=== PATIENT | female | born 1950 | race Caucasian/White ===

== ENCOUNTER 2025-02-10 08:42 | Outpatient (AMB) | payer MEDICARE, MEDICAID, SELFPAY ==
--- NOTE | 2025-02-10 08:44 | A.OFFPC_ITS ---
Vital Signs 02/10/25 08:53 Height 5 ft 2 in Weight 205 lb 4 oz BMI 37.5 BP 140/90 H Blood Pressure Location Lt brachial Position Sitting Respiration 16 Pulse 74 Pulse Source Pulse Oximeter Temp 98.0 F Temp Source Oral Pulse Oximetry (%) 98 Oxygen Delivery Method Room Air Intake Visit Reasons: CPE Intake Note: patient here for new patient. 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 Is last menstrual period known: No Post menopausal: No Patient : No Allergies No Known Allergies Allergy (Verified 02/10/25 08:56) Medication List - Last Reconciled 02/10/25 by Kathy Cerna CNP allopurinol 200 mg PO DAILY bupropion HCl XL 150 mg PO DAILY losartan 50 mg PO DAILY Tobacco use date assessed: 02/10/25 Fall risk assessment: No Falls in past year Last assessed Fall Risk: 02/10/25 Dental Screening Dental Screen Date: 02/10/25 Did you have a dental visit in the last 12 months?: No Did you have a dental problem in the last 6 months where you did not have access to dental care?: No Was dental information given to patient?: Patient has dentist HPI HPI Comments History of Present Illness Details 74-year-old female presents to critical access hospital care. She admits to taking her medications as prescribed without adverse reactions. She uses a walker and cane at baseline. Prior PCP? - Dr. Melo, [facility] Last office visit/CPE/labs - 1 year ago Acute issue(s) - HTN: Takes losartan 50 mg daily - Depression: takes buropion 150 mg malissa y. Notes controlled depressive symptoms. She attributes her depression to being lonely and physically not active. She has children who live nearby but busy taking care of the families. 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 She does not wear hearing aid and has never been followed by audiology - Myopia and hyperopia: She wears prescr iption glasses - Arthritis of right hip and knee and ch ronic low back pain with prolonged standing: She takes ibuprofen as needed Past Medical History - Hypertension, arthritis right hip and knee, chronic low back pain, urinary incontinence, gout, depression Surgical History - Cholecystectomy, left knee replacement Family History - Dad: HTN, HLD, cardiovascular disease, diabetes Social History - Nonsmoker. Does not vape. Does not dri nk alcohol. Denies recreational drug use - Has been making healthy dietary choice s. Not active and does not exercise. Generally sleep well Health maintenance - Last eye exam was about 2 years ago. Referred to Ophthalmology for routine eye exam - Last dental visit was over a years ago ; encouraged to schedule an appointment with his dentist for routine dental care - Last tetanus vaccine was more than 10 years ago; received Tdap vaccine today - Has not been vaccinated for the flu ; declines vaccination - She noes that she is vaccinated for pn eumonia. Record not currently available - She is unsure if she ever had the corea gles vaccines. She will research her vaccine record - Last pap smear test 10 years ago: robb peralta She no longer performs pap smear test - Last mammogram was about 5-10 years ag o. Mammogram ordered - Last colonoscopy about 7-8 years ago w [facility]. Will request her colonoscopy record for review and update as needed - She has never had a bone desity scan. Dexa scan ordered [facility] Medical History (Updated 02/10/25 @ 10:08 by Kathy Cerna CNP) FH: cholecystectomy Incontinence Depression Swelling Arthritis High blood pressure Surgical History (Updated 02/10/25 @ 09:08 by Socorro Jolly MA) History of left knee replacement Family History Father High blood pressure High cholesterol Diabetes Cardiovascular disease Social History Housing: House Patient Tobacco Use Status: Never used Tobacco e-Cigarette/Vaping Use: Never Used Second Hand Smoke Exposure: No service: No Current occupational status: retired Cognitive needs: Yes (cane) Hearing needs: Yes Vision needs: Yes Questionnaire PHQ-9 Over the last 2 weeks, how often have you been bothered by any of the following problems? 1. Little interest or pleasure in doing things: several days 2. Feeling down, depressed, or hopeless: several days 3. Trouble falling or staying asleep, or sleeping too much: nearly every day 4. Feeling tired or having little energy: more than half the days 5. Poor appetite or overeating: not at all 6. Feeling bad about yourself - or that you are a failure or have let yourself or your family down: not at all 7. Trouble concentrating on things, such as reading the newspaper or watching television: several days 8. Moving or speaking so slowly that other people could have noticed. Or the op posite - being so fidgety or restless that you have been moving around a lot more than usual: not at all 9. Thoughts that you would be better off or of hurting yourself in some way: several days Total score: 9 Depression Screening Interpretation: Positive Depression Screening Follow-up: Existing condition and In treatment Depression Screening Done: Yes 73902 - PHQ-9 Billing: Yes Source: Developed by Drs. Aaron Rosenbaum, Tory Salcido, Garry Rodriges and colleagues, with an educational arnaud from [employer]. Thrive Questionnaire Date Thrive assessed: 02/10/25 I am a: Patient What is your living situation today?: I have a steady place to live Within the past 12 months, did the food you bought not last and you didn't have the money to get more?: Never true Within the past 12 months, did you worry whether your food would run out before you got money to buy more?: Never true Do you have trouble paying for medicines?: No Do you have trouble getting transportation to medical appointments?: No Do you have trouble paying your heating and electricity bill?: No Do you have trouble taking care of your child, family member or friend?: No Do you have trouble with day-to-day activities such as bathing, preparing meals, shopping, managing finances, etc.?: Yes Are you currently unemployed and looking for a job?: No Are you interested in more education?: No Please select the resources that you would like help with: Daily support Currently or been in a relationship where the following occur: No concerns reported THRIVE Score: 0 AUDIT C Alcohol Use Questionnaire (AUDIT-C) 1. How often do you have a drink containing alcohol?: Never 3. How often do you have six or more drinks on one occasion?: Never Total Score: 0 Score Reviewed/Action Taken: Yes FELISHA-7 AMB Questionnaire FELISHA-7 Date FELISHA - 7 assessed: 02/10/25 Feeling nervous, anxious, or on edge: 1 = Several days Not being able to stop or control worryin = More than half the days Worrying too much about different things: 2 = More than half the days Trouble relaxin = Several days Being so restless that it is hard to sit still: 0 = Not at all Becoming easily annoyed or irritable: 0 = Not at all Feeling afraid as if something awful might happen: 1 = Several days Total FELISHA-7 score (0-4 normal; 5-9 mild; 10-14 moderate; 15-21 severe): 7 Source: Developed by Drs. Aaron Rosenbaum, Tory Salcido, Garry Rodriges and colleagues, with an educational arnaud from [employer]. FELISHA-7 Assessment Billing FELISHA-7 Assessment Tool: FELISHA-7 Assessment 80548 Review of Systems Const Details: Denies chills, Denies fatigue, Denies fever(s), Denies headache(s) and Denies weakness HEENT Denies change in vision, Denies dizziness, Denies headache(s), Reports hearing loss, Denies nasal congestion, Denies sinus pain, Denies sinus pressure and Denies sore throat Card Denies chest pain, Denies lightheadedness, Denies dyspnea and Denies other (palpitations) Resp Denies cough, Denies dyspnea and Denies wheezing GI Denies abdominal pain, Denies melena, Denies hematochezia, Denies change in bowel habits, Denies dyspepsia and Denies nausea Denies hematuria and Denies dysuria Musc Reports as per HPI Skin/Breast Denies rash, Denies unusual bruising and Denies wounds Neuro Denies abnormal gait, Denies dizziness, Denies headache(s), Denies memory loss, Denies numbness, Denies Sensory deficit (Neuro), Denies tingling, Denies numbness, and Denies weakness Psych Denies anxiety, Denies depression and Denies memory loss Endo Denies cold intolerance, Denies fatigue, Denies heat intolerance, Denies polydipsia and Denies polyuria Mark/Lymph Denies easy bleeding and Denies easy bruising Aller/Immun Denies wheezing Physical exam (Primary Care) Vital Signs: Last Vital Signs Temp 98.0 F 02/10/25 08:53 Pulse 74 02/10/25 08:53 Resp 16 02/10/25 08:53 BP 140/90 H 02/10/25 08:53 Pulse Ox 98 05/06/25 08:53 Oxygen Delivery Method Room Air 05/06/25 08:53 BMI result Body Mass Index 37.5 Tobacco/Smoking Status: Tobacco use Status Tobacco use date assessed 02/10/25 02/10/25 08:53 Patient Tobacco Use Status Never used Tobacco 02/10/25 08:53 e-Cigarette/Vaping Use Never Used 02/10/25 08:53 PHQ-9: PHQ-9 Score PHQ-9: Total score 9 02/10/25 10:34 Depression Screening Interpretation: Positive Depression Screening Follow-up: Existing condition and In treatment Thrive Assessment: Date of Thrive Assessment Date Thrive assessed 02/10/25 02/10/25 09:12 Currently or been in a relationship where the following occur: No concerns reported Const Other: General: no acute distress, well developed, alert and awake Nutritional Appearance: well nourished Orientation/consciousness: patient oriented x3 HENMT Head: Yes normocephalic and Yes atraumatic Ears: Diminished hearing bilaterally and TM's normal bilaterally General nose exam: Normal external nose present and Normal nares present Mouth: Normal oral and palatal mucosa present and moist mucous membranes Teeth and gingiva: dentition normal Throat: Yes oropharynx normal Eyes Pupils: Equal, round and reactive pupils present and Pupil accommodation reflex normal EOM: EOMs intact bilaterally Neck Neck: Yes normal visual inspection, Yes no lymphadenopathy and Yes trachea midline Thyroid: Thyroid normal Carotids: no bruits Lymphatic: no lymphadenopathy noted Chest Chest palpation & inspection: normal inspection of the chest Resp Effort & Inspection: normal respiratory effort Auscultation: clear to auscultation bilaterally Cardio Rate: regular rate Rhythm: regular rhythm Heart sounds: S1 normal heart sound present, S2 normal heart sound present, no gallops, no murmurs and no rubs Bruits: no abdominal aortic bruits and no carotid bruits GI Palpation (GI): No Abdominal aortic bruit present, Soft to palpation, nontender, No hepatosplenomegaly present and No Rebound tenderness present Auscultation: normal bowel sounds General: Yes no CVA tenderness Back/Spine/Pelvis Back: no CVA tenderness Cervical Spine: cervical ROM normal and No Cervical spine tenderness Thoracic/Lumbar Spine: thoraco-lumbar ROM normal, No pain with thoraco-lumbar ROM, No thoracic spinal tenderness and positive lumbar spine tenderness Skin General: warm and dry. Normal skin color. Normal skin turgor Lesions: no lesions Rashes: no rashes Trauma: no lacerations or abrasions Wounds: no wounds Nails: normal Neuro General: patient oriented x3, gait normal and CN's II-XI intact bilaterally Cranial nerves: Yes Equal, round and reactive pupils present Cognition (Neuro): normal cognition Gait exam (Neuro): Normal gait present Motor exam (neuro): 5/5 motor strength present throughout Sensory Exam: No Sensory deficit (Neuro) Deep tendon reflexes (DTR's): Right patellar reflex intensity grade: 2+ and Left patellar reflex intensity grade: 2+ Extrem General: Yes normal to inspection, No edema and No calf tenderness Psych Appearance: grossly normal Affect: normal affect Attitude: cooperative Thought process: Normal thought process present Immunizations Boostrix Tdap 2.5 Lf unit-8 mcg-5 Lf/0.5 mL intramuscular syringe Performing Provider: Kathy Cerna CNP Performing Location: [facility] Administered by: Keegan Ross RN on 02/10/25 09:51 Dose Route Admin Location Dispensed Lot Number Expiration Date [facility] Finger Waver 0.5 mL IM Left Deltoid 0.5 mL [id number] 10/17/26 [id number] [employer] VIS Given Date VIS Provided VIS Publication Date 02/10/25 Single Vaccine 21 Eligibility Eligibility Date Funding Source Not [facility] Eligible 02/10/25 Private Coding Level of Care Code New Pt Level 5 (79041) New Pt Prev Care >65yr (47225) Diagnoses Normal physical examination, routine Z00.00 High blood pressure I10 Depression F32.A Arthritis of right hip M16.11 Arthritis of right knee M17.11 Chronic low back pain M54.50; G89.29 Obesity (BMI 30-39.9) E66.9 Colon cancer screening Z12.11 Hyperopia H52.00 Myopia H52.10 TUNUNAK (hard of hearing) H91.90 Osteoporosis screening Z13.820 Laboratory tests ordered as part of a complete physical exam (CPE) Z00.00 Additional Codes FELISHA-7 Assessment Billing - FELISHA-7 Assessment Tool: FELISHA-7 Assessment 84071 ([id number]) PHQ-9 - 72727 - PHQ-9 Billing: Yes ([id number]) Time Spent (min) 75 Comment 45 mins with pt, 30 mins ordering labs/xray, coordinating plan of care, and documenting. Assessment & Plan Assessment & Plan (1) Normal physical examination, routine: Code(s): Z00.00 - Encounter for general adult medical examination without abnormal findings Category: Medical Plan: No significant functional limitation noted. Continue current treatment regimen. Perform lab work and imaging before next visit. Follow-up in 1 month for hypertension and labs/imaging reviewe. Return sooner with symptoms or concerns. Verbalized understanding and agreed with the plan. (2) High blood pressure: Code(s): I10 - Essential (primary) hypertension Category: Medical Plan: Resting blood pressure is 140/90, slightly above goal of less than 140/90. Continue current treatment regimen. Routine exercise and low-sodium diet encouraged. Follow-up in 1 month. Verbalized understanding and agreed with the plan. (3) Depression: Code(s): F32.A - Depression, unspecified Category: Medical Plan: She reports controlled depressive symptoms. She attributes her depression to being lonely and physically not active. She has children who live nearby but busy taking care of the families. She reports passive SI related to loneliness and not been physically active. She denies active SI and notes that she does not have a plan. PHQ-9 and FELISHA-7 score reveals mild depression and anxiety. Continue current treatment regimen. Routine exercise encouraged. Encouraged to contact PCP if she is interested in adults day programs. May connect her with her community nurse navigator for resources. Follow-up with worsening or new symptoms. Verbalized understanding and agreed with the treatment plan. (4) Arthritis of right hip: Code(s): M16.11 - Unilateral primary osteoarthritis, right hip Category: Medical Plan: Reports arthritis of right hip and knee and chronic low back pain with prolonged standing. No edema, erythema, or overt injury or trauma noted. May take Tylenol ibuprofen for pain or discomfort. Warm/cool compresses encouraged. Follow-up with worsening or new symptoms. May referred to PT. Verbalized understanding and agreed with the plan. (5) Arthritis of right knee: Code(s): M17.11 - Unilateral primary osteoarthritis, right knee Category: Medical Plan: Plan as above. X-ray of lumbar spine ordered. (6) Chronic low back pain: Code(s): M54.50 - Low back pain, unspecified; G89.29 - Other chronic pain Category: Medical Plan: Positive lumbar spine tenderness. Plan as above. X-ray of lumbar spine ordered. (7) Obesity (BMI 30-39.9): Code(s): E66.9 - Obesity, unspecified Category: Medical Plan: She currently weighs 205 lb, BMI is 37.5. She has been making healthy dietary choices. However, she is not active and does not exercise. Healthy diet and routine exercise encouraged. Referred to [facility] dietitian/blanket cutting machine operator as requested. Follow-up as needed. Verbalized understanding and agreed with the plan. (8) Colon cancer screening: Code(s): Z12.11 - Encounter for screening for malignant neoplasm of colon Category: Medical Plan: Last colonoscopy about 7-8 years ago with [facility]. Will request her colonoscopy record for review and update as needed. (9) Hyperopia: Code(s): H52.00 - Hypermetropia, unspecified eye Category: Medical Plan: She wears prescription glasses. Her last eye exam was about 2 years ago. Referred to Ophthalmology for routine eye exam. (10) Myopia: Code(s): H52.10 - Myopia, unspecified eye Category: Medical Plan: Plan as above. (11) TUNUNAK (hard of hearing): Code(s): H91.90 - Unspecified hearing loss, unspecified ear Category: Medical Plan: She reports out of hearing of both ears which has been ongoing for several years. She does not wear hearing aid and has never been followed by audiology. Diminished hearing bilaterally. Referred to audiology. (12) Osteoporosis screening: Code(s): Z13.820 - Encounter for screening for osteoporosis Category: Medical Plan: She has never had a bone desity scan. Dexa scan ordered. (13) Laboratory tests ordered as part of a complete physical exam (CPE): Code(s): Z00.00 - Encounter for general adult medical examination without abnormal findings Category: Medical Plan: Fasting labs ordered as part of a complete physical exam. Advised to fast for at least 10 hours before getting labs drawn. May drink water Verbalized understanding and agreed with treatment plan. Orders: Orders TDaP Immunization Today Z23 - Encounter for immunization Complete Blood Count Auto Diff Today Z00.00 - Encounter for general adult medical examination without abnormal findings Comprehensive [place]. Panel Fast Today Z00.00 - Encounter for general adult medical examination without abnormal findings Lipid Panel Today Z00.00 - Encounter for general adult medical examination without abnormal findings Microalbumin, Random (w Creat) Today Z00.00 - Encounter for general adult medic al examination without abnormal findings TSH reflex Free T4 Today Z00.00 - Encounter for general adult medical examination without abnormal findings UA CC w/rflx Micro + Cult Today Z00.00 - Encounter for general adult medical examination without abnormal findings MM screening mammo BI Today Z12.31 - Encounter for screening mammogram for malignant neoplasm of breast XR DEXA axial skeleton Today M81.0 - Age-related osteoporosis without current pathological fracture Vitamin D 25-OH Total Today Z00.00 - Encounter for general adult medical examination without abnormal findings XR lumbar spine 2-3V Today G89.29 - Other chronic pain, M54.50 - Low back pain, unspecified Referrals Nutrition/Dietitian Referral E66.9 - Obesity, unspecified Ophthalmology Referral H52.00 - Hypermetropia, unspecified eye, H52.10 - Myopia, unspecified eye Audiology Referral H91.90 - Unspecified hearing loss, unspecified ear
[2025-02-10 08:53] VITALS: BP 140/90; PULSE 74; RESP 16; TEMP 36.7; O2SAT 98; BMI 37.5
== END 2025-02-10 11:45 | disposition home or self-care (01) ==
LOC: HO.HMCFM 08:42
PROVIDERS: PCP Nurse Practitioner Family; Visit Provider Nurse Practitioner Family
DX: Z00.00 Encounter for general adult medical examination without abnormal findings (principal); I10 Essential (primary) hypertension; F32.A Depression, unspecified; M16.11 Unilateral primary osteoarthritis, right hip; M17.11 Unilateral primary osteoarthritis, right knee; M54.50 Low back pain, unspecified; G89.29 Other chronic pain; E66.9 Obesity, unspecified; Z12.11 Encounter for screening for malignant neoplasm of colon; Z23 Encounter for immunization; Z68.37 Body mass index [BMI] 37.0-37.9, adult

== ENCOUNTER → 2025-02-10 08:42 | Outpatient (BNVA) | payer MEDICARE, MEDICAID, SELFPAY | PROVIDERS: PCP Nurse Practitioner Family; Visit Provider Nurse Practitioner Family | DX: Z00.00 Encounter for general adult medical examination without abnormal findings (principal); Z23 Encounter for immunization; I10 Essential (primary) hypertension; F32.A Depression, unspecified; M16.11 Unilateral primary osteoarthritis, right hip; M17.11 Unilateral primary osteoarthritis, right knee; M54.50 Low back pain, unspecified; G89.29 Other chronic pain; H52.03 Hypermetropia, bilateral; H91.93 Unspecified hearing loss, bilateral; H52.10 Myopia, unspecified eye; E66.9 Obesity, unspecified; Z68.37 Body mass index [BMI] 37.0-37.9, adult; Z71.3 Dietary counseling and surveillance | CPT/HCPCS: 90471; 90715; 96127; 99202; 99387 ==

== ENCOUNTER 2025-09-01 15:21 | Outpatient (AMB) | payer MEDICARE, MEDICAID, SELFPAY ==
--- NOTE | 2025-09-01 15:28 | MHC.PC.OV ---
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: No Did you have a dental problem in the last 6 months where you did not have access to dental care?: No Was dental information given to patient?: Patient has dentist HPI HPI Comments History of Present Illness Details 75-year-old female, accompanied by her friend, presents with complaints of severe lightheadedness and dizziness for the past one week. Her symptoms started 2 weeks ago and has progressively worsened. Her symptoms were initially intermittent but is now persistent. She reports associated soreness to her posterior neck. She states that her gait is unsteady at baseline using her walker, but has worsened in the past 2 weeks. She denies headache or visual disturbance. She denies difficulty breathing or chest pain. She reports anxiety and depression symptoms. She has been feeling anxious persistently in the last 2 week. She feels hopeless, helpless, worthless, and lack of interest in doing things she enjoys. She notes that there are times she feel like she'll be better off . However, she does not feel like hurting herself. She denies suicide plan. She was last seen in February when she established care and was advised to follow-up in 1 month for labs and imaging review. However, she has not perform lab work or imaging. [facility] Medical History (Updated 09/01/25 @ 16:22 by Kathy Cerna CNP) FH: cholecystectomy Incontinence Depression Swelling Arthritis High blood pressure Surgical History (Updated 02/10/25 @ 09:08 by SHAILA Herbert) History of left knee replacement Family History Father High blood pressure High cholesterol Diabetes Cardiovascular disease Social History Housing: House Patient Tobacco Use Status: Never used Tobacco e-Cigarette/Vaping Use: Never Used Second Hand Smoke Exposure: No service: No Current occupational status: retired Cognitive needs: Yes (cane) Hearing needs: Yes Vision needs: Yes Questionnaire PHQ-9 Over the last 2 weeks, how often have you been bothered by any of the following problems? 1. Little interest or pleasure in doing things: more than half the days 2. Feeling down, depressed, or hopeless: nearly every day 3. Trouble falling or staying asleep, or sleeping too much: more than half the days 4. Feeling tired or having little energy: nearly every day 5. Poor appetite or overeating: more than half the days 6. Feeling bad about yourself - or that you are a failure or have let yourself or your family down: nearly every day 7. Trouble concentrating on things, such as reading the newspaper or watching television: nearly every day 8. Moving or speaking so slowly that other people could have noticed. Or the opposite - being so fidgety or restless that you have been moving around a lot more than usual: nearly every day 9. Thoughts that you would be better off or of hurting yourself in some way: more than half the days Total score: 23 Depression Screening Interpretation: Positive Depression Screening Follow-up: Existing condition, In treatment, New Medication prescribed and Change in Medication Depression Screening Done: Yes Source: Developed by Drs. Aaron Rosenbaum, Tory Salcido, Garry Rodriges and colleagues, with an educational arnaud from [employer]. Thrive Questionnaire Date Thrive assessed: 02/10/25 I am a: Patient What is your living situation today?: I have a steady place to live Within the past 12 months, did the food you bought not last and you didn't have the money to get more?: Never true Within the past 12 months, did you worry whether your food would run out before you got money to buy more?: Never true Do you have trouble paying for medicines?: No Do you have trouble getting transportation to medical appointments?: Yes Do you have trouble paying your heating and electricity bill?: No Do you have trouble taking care of your child, family member or friend?: No Do you have trouble with day-to-day activities such as bathing, preparing meals, shopping, managing finances, etc.?: Yes Are you currently unemployed and looking for a job?: No Are you interested in more education?: No Please select the resources that you would like help with: Housing/Custodial, Food, Transportation, Care for elder or disabled and Daily support Currently or been in a relationship where the following occur: No concerns reported THRIVE Score: 1 AUDIT C Alcohol Use Questionnaire (AUDIT-C) 1. How often do you have a drink containing alcohol?: Never Total Score: 0 FELISHA-7 AMB Questionnaire FELISHA-7 Date FELISHA - 7 assessed: 02/10/25 Feeling nervous, anxious, or on edge: 3 = Nearly every day Not being able to stop or control worryin = Nearly every day Worrying too much about different things: 3 = Nearly every day Trouble relaxin = More than half the days Being so restless that it is hard to sit still: 0 = Not at all Becoming easily annoyed or irritable: 2 = More than half the days Feeling afraid as if something awful might happen: 2 = More than half the days Total FELISHA-7 score (0-4 normal; 5-9 mild; 10-14 moderate; 15-21 severe): 15 Source: Developed by Drs. Aaron Rosenbaum, Tory Salcido, Garry Rodriges and colleagues, with an educational arnaud from [employer]. Review of Systems Const Details: Const Denies chills, Denies fatigue, Denies fever(s), Denies headache(s) and Denies weakness ENT Reports dizziness and Denies headache(s) Card Denies chest pain, Reports lightheadedness, Denies dyspnea and Denies other (Palpitations) Resp Denies cough, Denies dyspnea, Denies wheezing and Denies other ( shortness of breath) GI Denies abdominal pain, Denies melena, Denies hematochezia, Denies change in bowel habits, Denies dyspepsia and Denies nausea Denies hematuria and Denies dysuria Musc Reports abnormal gait, Denies myalgias, Denies arthralgias, Denies numbness and Denies tingling Skin/Breast Denies rash, Denies unusual bruising and Denies wounds Neuro Reports abnormal gait, Denies dizziness, Denies headache(s), Denies memory loss, Denies numbness, Denies Sensory deficit (Neuro), Denies tingling and Denies weakness Psych Reports anxiety, Reports depression, Denies memory loss Endo Denies cold intolerance, Denies fatigue, Denies heat intolerance, Denies polydipsia and Denies polyuria Aller/Immun Denies wheezing Physical exam (Primary Care) Vital Signs: Last Vital Signs Temp 98 F 09/01/25 15:32 Pulse 63 09/01/25 16:46 Resp 16 09/01/25 15:32 BP 154/76 H 09/01/25 16:46 Pulse Ox 96 09/01/25 15:32 Oxygen Delivery Method Room Air 09/01/25 15:32 BMI result Body Mass Index 37.0 Tobacco/Smoking Status: Tobacco use Status Tobacco use date assessed 09/01/25 09/01/25 15:35 Patient Tobacco Use Status Never used Tobacco 09/01/25 15:35 e-Cigarette/Vaping Use Never Used 09/01/25 15:35 PHQ-9: PHQ-9 Score PHQ-9: Total score 23 09/01/25 16:47 Depression Screening Interpretation: Positive Depression Screening Follow-up: Existing condition, In treatment, New Medication prescribed and Change in Medication Thrive Assessment: Date of Thrive Assessment Date Thrive assessed 02/10/25 09/01/25 15:35 Currently or been in a relationship where the following occur: No concerns reported Const Other: General: no acute distress and well developed Nutritional Appearance: well nourished Orientation/consciousness: patient oriented x3 HENMT Head: Yes normocephalic and Yes atraumatic Eyes General: appearance normal, both eyes and all related structures Pupils: Equal, round and reactive pupils present EOM: EOMs intact bilaterally Resp Effort & Inspection: normal respiratory effort Auscultation: clear to auscultation bilaterally Cardio Rate: regular rate Rhythm: regular rhythm Heart sounds: S1 normal heart sound present, S2 normal heart sound present, no gallops, no murmurs and no rubs GI Palpation (GI): No Abdominal aortic bruit present, Soft to palpation, nontender, No hepatosplenomegaly present and No Rebound tenderness present Auscultation: normal bowel sounds General: Yes no CVA tenderness Back/Spine/Pelvis Back: no CVA tenderness Cervical Spine: cervical ROM normal and No Cervical spine tenderness Thoracic/Lumbar Spine: thoraco-lumbar ROM normal, No pain with thoraco-lumbar ROM, No thoracic spinal tenderness and No lumbar spinal tenderness Extrem General: Yes normal to inspection, No edema and No calf tenderness Skin General: warm and dry. Normal skin color. Normal skin turgor Neuro General: patient oriented x3, gait normal and no focal neuro deficit Cranial nerves: Yes Equal, round and reactive pupils present Cognition (Neuro): normal cognition Gait exam (Neuro): Normal gait present Sensory Exam: No Sensory deficit (Neuro) Psych Appearance: grossly normal Mood: Anxious Affect: Mood congruent Attitude: cooperative Thought process: Normal thought process present Coding Level of Care Code Tele Est Pt Level 4 (48073) Diagnoses High blood pressure I10 Dizziness R42 Lightheadedness R42 Anxiety F41.9 Depression F32.A Assessment & Plan Assessment & Plan (1) High blood pressure: Code(s): I10 - Essential (primary) hypertension Category: Medical Plan: Initial blood pressure is 197/86. Blood pressure improved to 154/76 following administration of 0.2 mg of clonidine. Heart rate is 63. Blood pressure goal is less than 140/90. Losartan increased to 75 mg daily; advised to take as prescribed. Low-sodium diet encouraged. Follow-up in 2 weeks. Return sooner with symptoms or concerns. Verbalized understanding and agreed with the plan. (2) Dizziness: Code(s): R42 - Dizziness and giddiness Category: Medical Plan: Reports severe lightheadedness and dizziness for the past one week. Her symptoms started 2 weeks ago and has progressively worsened. Her symptoms were initially intermittent but is now persistent. She reports associated soreness to her posterior neck. She states that her gait is unsteady at baseline using her walker, but has worsened in the past 2 weeks. She denies headache or visual disturbance. She denies difficulty breathing or chest pain. Normal physical exam. No focal neuro deficit. Gait is steady. She notes that her dizziness slightly improved and lightheadedness resolved following administration of clonidine. Cause of her dizziness and lightheadedness is unclear. However, may be related to hypertension, electrolytes abnormality, or other abnormal labs. Advised to perform fasting lab work as soon as possible. Will review results and make changes as needed. Follow-up in 2 weeks. Return sooner or go to the ED with worsening or new symptoms. Verbalized understanding and agreed with the plan. (3) Lightheadedness: Code(s): R42 - Dizziness and giddiness Category: Medical Plan: Plan as above. (4) Anxiety: Code(s): F41.9 - Anxiety disorder, unspecified Category: Medical Plan: Reports anxiety and depression symptoms. She has been feeling anxious persistently in the last 2 week. She feels hopeless, helpless, worthless, and lack of interest in doing things she enjoys. She notes that there are times she feel like she'll be better off . However, she does not feel like hurting herself. She denies suicide plan. PHQ-9 and FELISHA-7 scores revealed severe depression and anxiety. Bupropion increased to 300 mg daily. Clonidine 0.1 mg daily at bedtime ordered to target anxiety and hypertension. Advised to take her medications as prescribed. Instructed on the risks, benefits, and potential adverse reactions of the medications. Follow-up in 2 weeks or sooner with worsening or new symptoms. Verbalized understanding and agreed with the plan. (5) Depression: Code(s): F32.A - Depression, unspecified Category: Medical Plan: Plan as above. Plan Total time for this visit was 60 minutes. This include 45 minutes with patient for chronic disease management/treatment, and 15 minutes reviewing, coordinating plan of care, and documenting. Orders: Orders AMB Clonidine 09/01/25 I10 - Essential (primary) hypertension Medications: New losartan Take with losartan 50 mg daily to equal 75 mg daily. 25 mg PO DAILY 30 tabs 3RF 30 days bupropion HCl XL 300 mg PO QAM 30 tabs 3RF 30 days clonidine HCl 0.1 mg PO BEDTIME 30 tabs 3RF 30 days Patient Instructions: Plan as above.
[2025-09-01 15:32] VITALS: BP 197/86; PULSE 70; RESP 16; TEMP 36.6; O2SAT 96; BMI 37.0
[2025-09-01 15:55] VITALS: BP 176/70
[2025-09-01 16:32] VITALS: BP 170/80; PULSE 66
[2025-09-01 16:46] VITALS: BP 154/76; PULSE 63
== END 2025-09-01 16:41 | disposition home or self-care (01) ==
LOC: HO.HMCFM 15:21
PROVIDERS: PCP Nurse Practitioner Family; Visit Provider Nurse Practitioner Family
DX: I10 Essential (primary) hypertension (principal); R42 Dizziness and giddiness; F41.9 Anxiety disorder, unspecified; F32.A Depression, unspecified

== ENCOUNTER → 2025-09-01 15:21 | Outpatient (BNVA) | payer MEDICARE, MEDICAID, SELFPAY | PROVIDERS: PCP Nurse Practitioner Family; Visit Provider Nurse Practitioner Family | DX: R42 Dizziness and giddiness (principal); I10 Essential (primary) hypertension; F41.9 Anxiety disorder, unspecified; F32.A Depression, unspecified | CPT/HCPCS: 99212 ==

== ENCOUNTER 2025-09-07 11:32 | Outpatient (REF) | payer MEDICARE, MEDICAID, SELFPAY ==
[2025-09-07 14:18] LABS: MANUAL DIFF FLAG NO
[2025-09-07 14:26] LABS: Appearance Urine Hazy; Glucose Urine UA Negative (Negative); PH 6.0 (5.0-9.0); Specific Gravity - Urine 1.025 (1.005-1.025); UMIC TRIGGER UACC YES
[2025-09-07 14:32] LABS: Hematocrit 43.2 % (37.0-47.0); Hemoglobin 14.3 g/dl (12.0-16.0); Imm Gran Abs Auto 0.02 X10*3/uL (0.00-0.03); Imm Gran Pct Auto 0.3 % (0.0-0.4); Lymphocytes Absolute Auto 3.3 X10*3/uL (1.2-4.9); Mean Corpuscular HGB Conc 33.1 g/dl (31.0-35.0); Mean Corpuscular Hemoglobin 31.0 pg (27.0-33.0); Mean Corpuscular Volume 93.7 fL (80.0-98.0); NRBC Abs Auto 0.000 X10*3/uL (0.0-0.012); NRBC Pct Auto 0.0 /100WBC (0.0-0.2); Platelet Count 253 X10*3/uL (160-400); Red Blood Count 4.61 X10*6/uL (4.20-5.50); White Blood Count 7.7 X10*3/uL (4.8-10.8)
[2025-09-07 14:59] LABS: UACC Culture Trigger YES
[2025-09-07 15:13] LABS: Alanine Aminotransferase 23 U/L (0-31); Albumin Level 4.2 g/dL (3.5-5.0); Alkaline Phosphatase 62 U/L (39-117); Anion Gap 12 (12-20); Aspartate Amino Transferase 33 U/L (5-31); Blood Urea Nitrogen 12 mg/dL (9-16); Calcium 9.8 mg/dL (8.4-10.2); Carbon Dioxide 25 mmol/L (22-29); Chloride 106 mmol/L (96-108); Cholesterol 194 mg/dL (<200); Estimated Glomerular Filt Rate > 60; HDL Cholesterol 45 mg/dL (>40); Potassium 4.0 mmol/L (3.3-5.1); Sodium 139 mmol/L (135-145); Total Protein 7.8 g/dL (6.5-8.0); Triglycerides 171 mg/dL (<150)
[2025-09-07 15:15] LABS: Microalbum/Creatinine Ratio Ur 19.3 ug/mg cr (<30)
--- OUTSIDE RECORDS SUMMARY | 2025-09-07 15:15 | XMS_ITS ---
Author Name [facility] Organization Unknown Care Team Organization Name Specialty Phone Email Start Date End Da te [facility] Termed, PROVIDER Primary Care 08/15/202205/08
== END 2025-09-07 11:33 | disposition home or self-care (01) ==
LOC: HO.WFDLDS 11:32
PROVIDERS: Visit Provider Nurse Practitioner Family
DX: Z00.00 Encounter for general adult medical examination without abnormal findings (principal); Z13.6 Encounter for screening for cardiovascular disorders; Z13.21 Encounter for screening for nutritional disorder; Z13.29 Encounter for screening for other suspected endocrine disorder
CPT/HCPCS: 36415; 80053; 80061; 81001; 82043; 82306; 82570; 84443; 85025; 87086

== ENCOUNTER 2025-10-04 13:32 | Emergency (ER) | payer MEDICARE, MEDICAID, SELFPAY ==
--- NOTE | ~2025-10-04 | XR_ITS ---
CLINICAL HISTORY: weakness 2 views chest: Comparison: None Findings: No fractures or dislocations. Normal vertebral body alignment. No significant arthritic change. Sacroiliac joints unremarkable. 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 This document has been electronically signed by: Rene García MD on 10/04/2025 16:00:33
--- NOTE | ~2025-10-04 | XR_ITS ---
CLINICAL HISTORY: right hip leg pain AP pelvis, 2 views each hip Comparison: None Findings: There is advanced scoliosis with secondary advanced degenerative disc space narrowing at L4-5 and L5-S1. Right hip arthroplasty is in good alignment with normal acetabular angle. Pubic bones and ischial bones are unremarkable. There is moderate degenerative narrowing of the left femoroacetabular joint. No abnormal calcifications. Pelvic bowel gas pattern unremarkable. No fractures or dislocations Impression: No acute skeletal abnormality. This document has been electronically signed by: Rene García MD on 10/04/2025 15:59:33
--- NOTE | ~2025-10-04 | CT_ITS ---
CLINICAL HISTORY: dizziness inability to walk CT Head Without Contrast: Comparison: 10/04/2025 taken at 1:28 p.m. [employer]ATOR Findings: Cortical sulci are symmetric Basal ganglia are unremarkable No shift in midline structures No intraparenchymal bleeding or abnormal extra axial blood fluid collections Normal pituitary size Clear paranasal sinuses Unremarkable orbital structures No depressed fractures Impression: Unremarkable CT of the head, no acute abnormality. ASPECTS score 10, NORMAL This document has been electronically signed by: Rene García MD on 10/04/2025 15:45:41
--- NOTE | ~2025-10-04 | CT_ITS ---
CLINICAL HISTORY: dizziness CT Head Without Contrast: Comparison: None Findings: Cortical sulci are symmetric. Ventricles are symmetric. Basal ganglia are unremarkable No shift in midline structures No intraparenchymal bleeding or abnormal extra axial blood fluid collections Normal pituitary size. Cerebellar pontine angles are unremarkable. In barrier prepontine cranial nerves space is unremarkable. There is effacement of posterior wall of left external auditory canal by large vascular jugular foramen in the skull base. Mastoid air cells and middle ear cavities are unremarkable. Clear paranasal sinuses Unremarkable orbital structures No depressed fractures Impression: No acute findings. Unremarkable CT of the head. This document has been electronically signed by: Rene García MD on 10/04/2025 16:10:32
--- NOTE | ~2025-10-04 | CT_ITS ---
CLINICAL HISTORY: impaired gait diziness LKWT 12 CTA HEAD, bolus contrast injection. 3D reconstructions and MPRs:: Comparison: None Findings: Right Carotid Siphon: Calcified plaque with mild stenosis Right Anterior Cerebral Artery: A1 and A2 segments are unremarkable. There is peripheral cortical enhancement. Right Middle Cerebral Artery: M1 and M2 segments are unremarkable. There is peripheral cortical enhancement. Right Posterior Cerebral Artery: There is mild stenosis of right P1. P2 segments are unremarkable]. There is peripheral enhancement Left Carotid Siphon: Calcified plaque with mild stenosis Left Anterior Cerebral Artery: A1 and A2 segments are unremarkable. There is peripheral cortical enhancement. Left Middle Cerebral Artery: M1 and M2 segments are unremarkable. There is peripheral cortical enhancement. Left Posterior Cerebral Artery: P1 and P2 segments are unremarkable. There is peripheral cortical enhancement. Basilar Artery: Unremarkable superior cerebellar arteries are perfused. Venous drainage: Normal Impression: No signs of aneurysm. No signs of arterial venous malformation. CTA Neck , Bolus contrast injection, 3D reconstructions and MPRs: Comparison: None Findings: Soft tissues of the neck are unremarkable Superior aorta and branch vessels are unremarkable Right carotid: There is dense right carotid bifurcation plaque with subtotal occlusion of the proximal right internal carotid artery and high-grade stenosis of the right proximal external carotid artery. (NASCET). Right vertebral: Proximal right vertebral orifice is dense calcified plaque. Left Carotid: There is dense left carotid bifurcation plaque with 35% focal stenosis of proximal left internal carotid artery. (NASCET) Left Vertebral: No stenosis. 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 This measurement may be exaggerated by calcium blooming artifact. There is 35% % focal stenosis of the proximal left internal carotid artery. There is 60% focal stenosis of the proximal left external carotid artery. There is high-grade stenosis involving the proximal right external carotid artery. Right vertebral artery orifice is obscured by dense calcified plaque. No aneurysm or dissection This document has been electronically signed by: Rene García MD on 10/04/2025 16:32:55
[2025-10-04 13:48] VITALS: BP 138/64; PULSE 80; O2SAT 98; BMI 37.5
--- NOTE | 2025-10-04 13:57 | ECG_ITS ---
Test Reason : WEAKNESS Blood Pressure : */* mmHG Vent. Rate : 77 BPM Atrial Rate : 77 BPM P-R Int : 210 ms QRS Dur : 94 ms QT Int : 408 ms P-R-T Axes : 50 -25 39 degrees QTcB Int : 461 ms Sinus rhythm with 1st degree A-V block Minimal voltage criteria for LVH, may be normal variant ( Daniel product ) Borderline ECG When compared with ECG of 20-Nov-2006 14:12, Minimal criteria for LVH present Referred By: Karina Garcia Electronically Signed By: ELAYNE GARCIA
[2025-10-04 13:58] VITALS: BP 126/60; PULSE 50; RESP 80; TEMP 36.4; O2SAT 95
--- NOTE | 2025-10-04 14:07 | ED_ITS ---
HPI - General Adult General Chief complaint: General Medical Stated complaint: WEAK,DIZZY,LETHARGIC FROM [facility] PER EMS Time Seen by Provider: 10/04/25 14:06 Source: patient and EMS Mode of arrival: EMS History of Present Illness ED Provider: MICA Marlow HPI narrative: Subjective Chief Complaint: ?I became very light-headed and couldn?t even stand up.? History of Present Illness: 75-year-old female with history of hard of hearing, depression, obesity, and was told she had coronary artery stenosis (per [facility] earlier this month) presents with sudden-onset severe dizziness and lightheadedness that began at approximately noon today (~2 hours prior to arrival). Patient states she was fine earlier today and yesterday. Current episode is significantly worse than prior similar episode earlier this month?then she could ambulate; today she is unable to stand or ambulate and has difficulty keeping her eyes open. She reports mild nausea, no vomiting, and dry mouth. No known visual changes reported. No pacemaker or other implanted metal devices (only dental work). Health care proxy by phone confirms prior MRI at [facility] and scheduled vascular follow-up in October. [id number] time differs between facility report and proxy; facility will be contacted for clarification. Patient is not on anticoagulation. Related Data Home Medications ?Medication ?Instructions ?Recorded ?Confirmed acetaminophen 325 mg tablet 650 mg PO Q4H PRN Pain (Sc oseas 10/04/25 10/04/25 Score 1-3) allopurinol 100 mg tablet 100 mg PO BID 10/04/2510/04 aspirin 81 mg tablet,delayed 81 mg PO DAILY 10/04/25 1 12/05/24 release atorvastatin 40 mg tablet 40 mg PO DAILY 10/04/2509/08 bupropion HCl 300 mg 24 hr tablet, 300 mg PO DAILY 10/04/25 extended release lidocaine 5 % topical patch 1 patch topical DAILY 09/0810/04/25 losartan 50 mg tablet 100 mg PO DAILY 10/04/25 meclizine 12.5 mg tablet 12.5 mg PO BID PRN Dizziness 10/04/25 10/04/25 Previous Rx's ?Medication ?Instructions ?Recorded clonidine HCl 0.1 mg tablet 0.1 mg PO BEDTIME 30 days #30 tabs 09/01/25 doxycycline hyclate 100 mg capsule 100 mg PO BID 10 da ys #20 caps 10/04/25 Allergies Allergy/AdvReac Type Severity Reaction Status Date / Time Sulfa (Sulfonamide Allergy Intermediate Unknown Verified 10/04/25 13:50 Antibiotics) Review of Systems 2 Review of Systems: Yes all other systems are reviewed and are negative [facility] Past Medical History Attestation statement: The following information was validated with the patient. Source: old records reviewed and nursing notes reviewed Medical History FH: cholecystectomy Incontinence Depression Swelling Arthritis High blood pressure Surgical History History of left knee replacement Family History Family History Father High blood pressure High cholesterol Diabetes Cardiovascular disease Social History Social History Housing: House Patient Tobacco Use Status: Never used Tobacco Smoked in Last 30 Days: No e-Cigarette/Vaping Use: Never Used Second Hand Smoke Exposure: No Use of substances other than those prescribed or required for medical reasons: No Advance Directives: No Advance Directives Information Provided: Yes service: No Current occupational status: retired Cognitive needs: Yes (cane) Hearing needs: Yes Vision needs: Yes Physical Exam ED Exam Exam: Appearance: Alert.? Oriented X3.? No acute distress.?+ appears uncomfortable laying w/ eyes closed Head: Normocephalic, atraumatic, no step-offs or deformities Eyes: Pupils equal, round and reactive to light.? Neck: Normal inspection.? Neck supple.? CVS: Normal heart rate and rhythm.? Pulses normal.? Respiratory: No respiratory distress.? Breath sounds normal.? Abdomen: Soft and nontender.? Skin: Skin warm and dry.? Normal skin color.? Normal skin turgor.? Extremities: No lower extremity edema.? No calf ttp. Global weakness . Normal hand tube balancer bilaterally. No drift. Back: No midline tenderness, no C-spine tenderness, full range of motion, no CVA tenderness bilaterally Neuro: Oriented X 3.? No motor deficit.? No sensory deficit. CN 2-12 intact. Finger to nose intact b/l Vital Signs: Vital Signs - 24 hr 10/04/25 13:58 10/04/25 17:32 10/04/25 17:35 Temperature 97.6 F 98.8 F Pulse Rate 50 75 81 Respiratory Rate 80 H 18 Blood Pressure 126/60 151/104 H Pulse Oximetry 95 96 Oxygen Delivery Method Room Air Room Air BMI result Body Mass Index 37.5 vss Course Reevaluation(s) Reevaluation #1: I spoke to HCP who tells me that this was a similar presentation to earlier this month where patient was noted to have coranary artery stenosis Time: 14:37 Reevaluation #2: Spoke to nurse Nisha at [facility] who tells me that patient was very lethargic and dizzy. She tells me last known well time is unclear this nurse tells me that she usually passes meds around 08:00 today when she passed meds patient reports that she was very dizzy however she takes meclizine for her dizziness therefore they thought that maybe she would get better. Patient reported that her symptoms have been ongoing since prior to 08:00 however symptoms seemed to get worse around 1221. She tells me patient is usually independent with a walker however today has not been able to ambulate due to the dizziness. This confirms that last known well time is unclear. Time: 15:11 Reevaluation #3: Call out to neurology. 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 There is 35% focal stenosis of the proximal left internal carotid artery there is 60% focal stenosis of the proximal left external carotid artery high-grade stenosis involving the proximal right external carotid artery right vertebral artery orifice is obscured by dense calcified plaque. No aneurysm or dissection Time: 16:41 Additional Reevaluation(s): Did speak to Neurology who states there is no need for emergent neurovascular intervention she should follow up outpatient. Patient should be on aspirin which she does appear to be on. Will treat her dizziness. This is likely vertigo. No indication for acute MRI at this time. 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 X-ray of the hip bilaterally no acute skeletal abnormalities. When patient feels better she will be discharged back to nursing facility with p.o. antibiotics for a suspected pneumonia and she should follow up with vascular surgery outpatient. 1734 HCP invoked HCP is Mike Shah [phone] is aware of situation. Patient to return back to [facility]. He reports that she has been reporting low back pain with radiation to right lower extremity she is reporting this pain right now I am giving morphine. Her urine is still pending patient to be discharged with doxycycline for question community-acquired pneumonia. Although, she denies chest pain and shortness breath. 1743- HTN home clonidine night time dose will be given at this time Medications Administered Discontinued Medications Generic Name Dose Route Start Last Admin Trade Name Freq PRN Reason Stop Dose Admin Diazepam 2 mg 10/04/25 15:06 10/04/25 15:40 Diazepam 2 Mg Tablet PO 10/04/25 15:07 2 mg ONCE ONE Administration Doxycycline Monohydrate 100 mg 10/04/25 17:15 10/04/25 17:31 Doxycycline Monohydrate 100 Mg Capsule PO 10/04/25 17:16 100 mg ONCE ONE Administration Iohexol 100 ml 10/04/25 15:35 10/04/25 15:36 Iohexol 350 Mg/Ml 100 Ml Infus..Btl IV 10/04/25 15:36 70 ml ONCE ONE Administration Meclizine HCl 25 mg 10/04/25 15:06 10/04/25 15:40 Meclizine Hcl 25 Mg Tablet PO 10/04/25 15:07 25 mg ONCE ONE Administration Morphine Sulfate 4 mg 10/04/25 17:27 10/04/25 17:31 Morphine Sulfate 4 Mg/Ml Cartridge IVPUSH 10/04/25 17:28 4 mg ONCE ONE Administration Protocol Medical Decision Making Medical Decision Making [facility] Narrative: 1446 Assessment & Plan 75-year-old female with acute onset severe dizziness and inability to ambulate concerning for posterior circulation cerebrovascular event. Problem #1: Acute severe dizziness ? rule out posterior circulation stroke Assessment: Sudden onset (~2 hrs), inability to stand, worse than prior episode, mild nausea without vomiting. Prior coronary artery stenosis increases vascular risk. Last known well unclear. Plan: * Stroke alert initiated. * Patient brought to CAT scan as part of stroke alert protocol. * Contact facility to confirm exact [id number] time. Differential Diagnosis Differential Diagnoses: The differential diagnosis associated with the presentation includes Admission/Observation Consideration of admission/observation: Escalation of care including admission/observation considered Consult Healthcare Provider Management of the patient was discussed with: Residential Case Manager (Wilfredo ) Lab Data MDM Lab Attestation statement: I reviewed the patient's lab results. 10/04/25 14:45 10/04/25 14:44 Labs: Lab Results 10/04/25 10/04/25 10/04/25 Range/Units 14:44 14:45 14:46 WBC 7.3 (4.8-10.8) X10*3/uL RBC 3.74 L (4.20-5.50) X10*6/uL Hgb 11.6 L (12.0-16.0) g/dl Hct 35.8 L (37.0-47.0) % MCV 95.7 (80.0-98.0) fL MCH 31.0 (27.0-33.0) pg MCHC 32.4 (31.0-35.0) g/dl RDW 13.2 (11.0-16.0) % Plt Count 182 D (160-400) X10*3/uL MPV 10.8 (9.4-12.3) fL Immature Gran % (Auto) 0.1 (0.0-0.4) % Neut % (Auto) 51.8 (45-73) % Lymph % (Auto) 36.8 (20-40) % [place] % (Auto) 8.7 (2-11) % Eos % (Auto) 2.2 (0-4) % Baso % (Auto) 0.4 (0-2) % Lymph # (Auto) 2.7 (1.2-4.9) X10*3/uL [place] # (Auto) 0.6 (0.1-1.2) X10*3/uL Eos # (Auto) 0.2 (0.0-0.4) X10*3/uL Baso # (Auto) 0.0 (0.0-0.2) X10*3/uL Abs Immat Gran (auto) 0.01 (0.00-0.03) X10*3/uL Absolute Neuts (auto) 3.8 (2.0-8.3) x10*3/uL Absolute Nucleated RBC 0.000 (0.0-0.012) X10*3/uL Nucleated RBC % (auto) 0.0 (0.0-0.2) /100WBC Sodium 138 (135-145) mmol/L Potassium 4.3 (3.3-5.1) mmol/L Chloride 105 (96-108) mmol/L Carbon Dioxide 25 (22-29) mmol/L Anion Gap 12 (12-20) BUN 16 (9-16) mg/dL Creatinine 0.83 (0.5-1.4) mg/dL Estim Creat Clear Calc 62.2 Estimated GFR > 60 Random Glucose 107 (60-115) mg/dL Lactic Acid 1.5 (0.5-2.0) mmol/L Calcium 9.8 (8.4-10.2) mg/dL Magnesium 2.3 (1.6-2.6) mg/dL Total Bilirubin 0.6 (0.0-1.0) mg/dL AST 23 (5-31) U/L ALT 12 (0-31) U/L Alkaline Phosphatase 60 (39-117) U/L Troponin I High Sens 19.9 H (<3.5-17.0) ng/L NT-Pro-B Natriuret Pep 180.9 (<300) pg/mL Total Protein 6.9 (6.5-8.0) g/dL Albumin 3.7 (3.5-5.0) g/dL Influenza Type A (PCR) (Negative) Influenza Type B (PCR) (Negative) RSV RNA Qual (PCR) (Negative) SARS-CoV-2 RNA (RT-PCR) (Negative) 10/04/25 10/04/25 Range/Units 14:47 16:20 WBC (4.8-10.8) X10*3/uL RBC (4.20-5.50) X10*6/uL Hgb (12.0-16.0) g/dl Hct (37.0-47.0) % MCV (80.0-98.0) fL MCH (27.0-33.0) pg MCHC (31.0-35.0) g/dl RDW (11.0-16.0) % Plt Count (160-400) X10*3/uL MPV (9.4-12.3) fL Immature Gran % (Auto) (0.0-0.4) % Neut % (Auto) (45-73) % Lymph % (Auto) (20-40) % [place] % (Auto) (2-11) % Eos % (Auto) (0-4) % Baso % (Auto) (0-2) % Lymph # (Auto) (1.2-4.9) X10*3/uL [place] # (Auto) (0.1-1.2) X10*3/uL Eos # (Auto) (0.0-0.4) X10*3/uL Baso # (Auto) (0.0-0.2) X10*3/uL Abs Immat Gran (auto) (0.00-0.03) X10*3/uL Absolute Neuts (auto) (2.0-8.3) x10*3/uL Absolute Nucleated RBC (0.0-0.012) X10*3/uL Nucleated RBC % (auto) (0.0-0.2) /100WBC Sodium (135-145) mmol/L Potassium (3.3-5.1) mmol/L Chloride (96-108) mmol/L Carbon Dioxide (22-29) mmol/L Anion Gap (12-20) BUN (9-16) mg/dL Creatinine (0.5-1.4) mg/dL Estim Creat Clear Calc Estimated GFR Random Glucose (60-115) mg/dL Lactic Acid (0.5-2.0) mmol/L Calcium (8.4-10.2) mg/dL Magnesium (1.6-2.6) mg/dL Total Bilirubin (0.0-1.0) mg/dL AST (5-31) U/L ALT (0-31) U/L Alkaline Phosphatase (39-117) U/L Troponin I High Sens 19.0 H (<3.5-17.0) ng/L NT-Pro-B Natriuret Pep (<300) pg/mL Total Protein (6.5-8.0) g/dL Albumin (3.5-5.0) g/dL Influenza Type A (PCR) NEGATIVE (Negative) Influenza Type B (PCR) NEGATIVE (Negative) RSV RNA Qual (PCR) NEGATIVE (Negative) SARS-CoV-2 RNA (RT-PCR) NEGATIVE (Negative) Independent Interpretation I performed an independent interpretation of an: Plain X-Ray (Impression: Right infrahilar opacity with central hypodensity consistent with 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 This measurement may be exaggerated by calcium blooming artifact. There is 35% % focal stenosis of the proximal left internal carotid artery. There is 60% focal stenosis of the proximal left external carotid artery. There is ) Interpretation: Impression: No acute skeletal abnormality. Radiology Impression Discussion of test interpretation with radiology: I have reviewed the radiologist's reading. Critical Care Time Critical Care Time Critical Care Time: Yes Total Critical Care Time: 45 Attestation: I attest to this time spent taking care of the patient, obtaining history, physical, reviewing labs, imaging, treatment of patients condition +/- specialist/hospitalist consult +/- procedure Discharge Plan Discharge Clinical Impression: Dizziness, Occlusion of right internal carotid artery, Pneumonia Patient Disposition: [facility] Other Transfer Details: [facility] Instructions: Vertigo (ED), Pneumonia (ED) Additional Instructions: Take your medications as prescribed. If you were prescribed antibiotics today, it is important that you take your medication to their entirety, do not skip any doses, do not finish them early. Follow-up with your primary care provider this week. Return to the emergency department with new or worsening symptoms. 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 Prescriptions: New doxycycline hyclate 100 mg capsule 100 mg PO BID 10 Days Qty: 20 0RF No Action atorvastatin 40 mg tablet 40 mg PO DAILY acetaminophen 325 mg Tablet 650 mg PO Q4H PRN (Reason: Pain (Scale Score 1-3)) meclizine 12.5 mg Tablet 12.5 mg PO BID PRN (Reason: Dizziness) aspirin [Aspir-81] 81 mg Tablet,Delayed Release (Dr/Ec) 81 mg PO DAILY lidocaine 5 % Adhesive Patch,Medicated 1 patch TOPICAL DAILY Rx Instructions: leave on most painful area for up to 12 hrs bupropion HCl 300 mg tablet extended release 24 hr 300 mg PO DAILY losartan 50 mg tablet 100 mg PO DAILY allopurinol 100 mg tablet 100 mg PO BID clonidine HCl 0.1 mg tablet 0.1 mg PO BEDTIME 30 Days Qty: 30 3RF Referrals: Physician,Unknown J [Primary Care Provider, Medical] Print Language: [place]
[2025-10-04 14:52] LABS: MANUAL DIFF FLAG NO
--- OUTSIDE RECORDS SUMMARY | 2025-10-04 14:54 | XMS_ITS | Encounter Summary ---
Author Organization [facility] Address [address] [place] [address] Care Team Providers Care Chief Wheelage Clerk Name Role Phone Lillian Sprague MD Primary Care Provider [phone] Encounter Details Date Type Department Care Team (Late st Contact Info) Description 10/04/2025 Lab Requisition [facility] - Main Lab [address] [facility] [place] [address] Lillian Sprague MD [address] [place] [address] Hyperlipidemia, unspecified Social History Tobacco Use Types Packs/Day Years Used Date Smoking Tobacco: Never Smokeless Tobacco: Never Alcohol Use Standard Drinks/Week Comments No 0 (1 standard drink = 0.6 oz pur e alcohol) Comments Unknown Sex and Gender Information Value Date Recorded Sex Assigned at Not on file Legal Sex Female 10:24 AM EST Gender Identity Not on file Sexual Orientation Not on file documented as of this encounter Plan of Treatment Scheduled Orders Name Type Priority Associated Diagnoses Orde r Schedule Complete blood count Lab Routine Hyperlipidemia, unspecified Ordered: 10/04/2025 Basic metabolic panel Lab Routine Hyperlipidemia, unspecified Ordered: 10/04/2025 documented as of this encounter Visit Diagnoses Diagnosis Hyperlipidemia, unspecified documented in this encounter Care Teams Chief Wheelage Clerk Relationship Specialty Start Date End Date Lillian Sprague MD [address] [place], [place] [id number] PCP - General Geriatric Medicine 09/21/25 documented as of this encounter
--- OUTSIDE RECORDS SUMMARY | 2025-10-04 14:54 | XMS_ITS | Encounter Summary ---
Author Organization [facility] Address [address] [place] [address] Care Team Providers Care Custom Shoemaker Name Role Phone Lillian Sprague MD Primary Care Provider [phone] Encounter Details Date Type Department Care Team (Late st Contact Info) Description 09/21/2025 Lab Requisition [facility] - Main Lab [address] [facility] [place] [address] Lillian Sprague MD [address] [place] [address] Vitamin B12 deficiency anemia, unspecified; Vitamin D deficiency, unspecified; Hyperlipidemia, unspecified Social History Tobacco Use Types [...] as of this encounter Plan of Treatment Not on file documented as of this encounter Procedures Procedure Name Priority Date/Time Associated Diagnosis Comments LIPID PANEL WITH REFLEX TO DIRECT LDL Routine 09/21/2025 5:41 AM EST Vitamin B12 deficiency anemia, unspecified Vitamin D deficiency, unspecified Hyperlipidemia, unspecified COMPLETE BLOOD COUNT Routine 09/21/2025 5:41 AM EST Vitamin B12 deficiency anemia, unspecified Vitamin D deficiency, unspecified Hyperlipidemia, unspecified FOLATE Routine 09/21/2025 5:41 AM EST Vitamin B12 deficiency anemia, unspecified Vitamin D deficiency, unspecified Hyperlipidemia, unspecified VITAMIN B12 Routine 09/21/2025 5:41 AM EST Vitamin B12 deficiency anemia, unspecified Vitamin D deficiency, unspecified Hyperlipidemia, unspecified COMPREHENSIVE METABOLIC PANEL Routine 09/21/2025 5:41 AM EST Vitamin B12 deficiency anemia, unspecified Vitamin D deficiency, unspecified Hyperlipidemia, unspecified documented in this encounter Results * Folate (09/21/2025 5:41 AM EST) Pathologist [facility] Folate 7.2 >=5.4 ng/ml 09/21/2025 12:13 PM EST [facility] Blood Venous blood specimen / Unknown Venipuncture / Unknown 09/21/2025 5:41 AM EST 09/21/2025 10:17 AM EST Narrative [facility] - 09/21/2025 12:13 PM EST Over the counter supplements containing high doses of biotin may interfere with this assay. If interference is suspected, patients shoud be retested after refraining from biotin supplements for 72 hours. us Lillian Sprague MD LAB BLOOD ORDERABLES Final Resul t [facility] [address] [place] [address], [place] [phone] * Vitamin B12 (09/21/2025 5:41 AM EST) Vitamin B-12 253 211 - 911 pcg/mL 09/21/2025 12:13 PM EST [facility] Blood Venous blood specimen / Unknown Venipuncture / Unknown 09/21/2025 5:41 AM EST 09/21/2025 10:17 AM EST us Lillian Sprague MD LAB BLOOD ORDERABLES Final Resul t [facility] [address] [place] [address], [place] [phone] * Lipid panel with reflex to direct LDL (09/21/2025 5:41 AM EST) Cholesterol 106 0 - 200 mg/dL 09/21/2025 12:19 PM [facility] Triglycerides 120 0 - 150 mg/dL 09/21/2025 12:19 PM [facility] HDL 43 >=40 mg/dL 09/21/2025 12:19 PM [facility] LDL Calculated 39 0 - 100 mg/dL 09/21/2025 12:19 PM [facility] Comment:Estimated LDL is taryn culated using the Friedewald equation: Total cholesterol - HDL cholesterol - (Triglycerides/5) VLDL Cholesterol Taryn 24 mg/dL 09/21/2025 12:19 PM [facility] Non HDL Chol. (LDL+VLDL) 63 <145 mg/dL 09/21/2025 12:19 PM [facility] Chol/HDL Ratio 2.5 0.0 - 4.4 09/21/2025 12:19 PM [facility] Blood Venous blood specimen / Unknown Venipuncture / Unknown 09/21/2025 5:41 AM EST 09/21/2025 10:17 AM EST Lillian Sprague MD LAB BLOOD ORDERABLES Final Resul t [facility] [address] [place] [address], [place] [phone] * Comprehensive metabolic panel (09/21/2025 5:41 AM EST) Sodium 140 133 - 145 mmol/L 09/21/2025 12:19 PM [facility] Potassium 4.3 3.5 - 5.5 mmol/L 09/21/2025 12:19 PM [facility] Chloride 103 96 - 110 mmol/L 09/21/2025 12:19 PM [facility] CO2 26 21 - 32 mmol/L 09/21/2025 12:19 PM [facility] Anion Gap 11 3 - 11 09/21/2025 12:19 PM [facility] Glucose 86 70 - 100 mg/dL 09/21/2025 12:19 PM [facility] BUN 20 5 - 25 mg/dL 09/21/2025 12:19 PM [facility] Creatinine 0.92 0.50 - 1.10 mg/dL 09/21/2025 12:19 PM [facility] eGFR 65 >=60 mL/min/1. 73m2 09/21/2025 12:19 PM [facility] Comment:Calculation based on the Chronic Kidney Disease Epidemiology Collaboration (CKD-EPI) equation refit without adjustment for race. BUN/Creatinine Ratio 21.7 09/21/2025 12:19 PM [facility] Calcium 10.1 8.5 - 10.5 mg/dL 09/21/2025 12:19 PM [facility] AST (SGOT) 16 10 - 42 unit/L 09/21/2025 12:19 PM [facility] ALT (SGPT) 13 10 - 60 unit/L 09/21/2025 12:19 PM [facility] Alkaline Phosphatase 55 42 - 121 unit/L 09/21/2025 12:19 PM [facility] Total Protein 6.6 6.0 - 8.0 g/dL 09/21/2025 12:19 PM [facility] Albumin 3.5 3.2 - 5.0 g/dL 09/21/2025 12:19 PM [facility] Total Bilirubin 0.6 0.0 - 1.4 mg/dL 09/21/2025 12:19 PM [facility] Blood Venous blood specimen / Unknown Venipuncture / Unknown 09/21/2025 5:41 AM EST 09/21/2025 10:17 AM EST us Lillian Sprague MD LAB BLOOD ORDERABLES Final Resul t [facility] [address] [place] [address], * Complete blood count (09/21/2025 5:41 AM EST) WBC 6.1 4.8 - 10.8 K/mcL LAB HEMETOLOGY METHOD 09/21/2025 11:31 AM [facility] RBC 3.80 3.80 - 4.80 M/mcL LAB HEMETOLOGY METHOD 09/21/2025 11:31 AM [facility] Hemoglobin 12.1 11.5 - 16.0 g/dL LAB HEMETOLOGY METHOD 09/21/2025 11:31 AM [facility] Hematocrit 37.3 35.0 - 47.0 % LAB HEMETOLOGY METHOD 09/21/2025 11:31 AM [facility] MCV 97.6 79.0 - 98.0 FL LAB HEMETOLOGY METHOD 09/21/2025 11:31 AM [facility] MCH 31.7 27.0 - 32.0 pcg LAB HEMETOLOGY METHOD 09/21/2025 11:31 AM [facility] MCHC 32.4 32.0 - 37.0 g/dL LAB HEMETOLOGY METHOD 09/21/2025 11:31 AM [facility] RDW 12.5 11.0 - 15.0 % LAB HEMETOLOGY METHOD 09/21/2025 11:31 AM [facility] Platelets 200 130 - 400 K/mcL LAB HEMETOLOGY METHOD 09/21/2025 11:31 AM EST [facility] MPV 10.5 7.0 - 11.0 FL LAB HEMETOLOGY METHOD 09/21/2025 11:31 AM EST [facility] NRBC 0.0 <1.0 % LAB HEMETOLOGY METHOD 09/21/2025 11:31 AM EST [facility] NRBC Absolute 0.00 <0.10 K/mcL LAB HEMETOLOGY METHOD 09/21/2025 11:31 AM EST [facility] Blood Venous blood specimen / Unknown Venipuncture / Unknown 09/21/2025 5:41 AM EST 09/21/2025 10:17 AM EST Lillian Sprague MD LAB BLOOD ORDERABLES Final Resul t [facility] [address] [place] [address], documented in this encounter Visit Diagnoses Diagnosis Vitamin B12 deficiency anemia, unspecified Vitamin D deficiency, unspecified Hyperlipidemia, unspecified documented in this encounter Care Teams Custom Shoemaker Relationship Specialty Start Date End Date Lillian Sprague MD [address] [place] [address] [address] [place] [address] PCP - General Geriatric Medicine 09/21/25 documented as of this encounter
--- OUTSIDE RECORDS SUMMARY | 2025-10-04 14:54 | XMS_ITS | Encounter Summary ---
Author Organization [facility] Address [address] [place] [address] Care Team Providers Care Spinning Bath Patroller Name Role Phone Lillian Sprague MD Primary Care Provider [phone] Encounter Details Date Type Department Care Team (Late st Contact Info) Description 09/26/2025 Lab Requisition [facility] - Main Lab [address] [facility] [place] [address] Lillian Sprague MD [address] [place] [address] Hyperlipidemia, unspecified Social History Tobacco Use Types [...] Procedure Name Priority Date/Time Associated Diagnosis Comments COMPLETE BLOOD COUNT Routine 09/28/2025 5:31 AM EST Hyperlipidemia, unspecified BASIC METABOLIC PANEL Routine 09/28/2025 5:31 AM EST Hyperlipidemia, unspecified documented in this encounter Results * Basic metabolic panel (09/28/2025 5:31 AM EST) Sodium 139 133 - 145 mmol/L 09/28/2025 11:43 AM EST [facility] Potassium 4.1 3.5 - 5.5 mmol/L 09/28/2025 11:43 AM [facility] Chloride 104 96 - 110 mmol/L 09/28/2025 11:43 AM [facility] CO2 25 21 - 32 mmol/L 09/28/2025 11:43 AM [facility] Anion Gap 10 3 - 11 09/28/2025 11:43 AM [facility] Glucose 87 70 - 100 mg/dL 09/28/2025 11:43 AM [facility] BUN 17 5 - 25 mg/dL 09/28/2025 11:43 AM [facility] Creatinine 0.84 0.50 - 1.10 mg/dL 09/28/2025 11:43 AM [facility] eGFR 73 >=60 mL/min/1. 73m2 09/28/2025 11:43 AM [facility] Comment:Calculation based on the Chronic Kidney Disease Epidemiology Collaboration (CKD-EPI) equation refit without adjustment for race. BUN/Creatinine Ratio 20.2 09/28/2025 11:43 AM [facility] Calcium 9.0 8.5 - 10.5 mg/dL 09/28/2025 11:43 AM [facility] Blood Venous blood specimen / Unknown Venipuncture / Unknown 09/28/2025 5:31 AM EST 09/28/2025 10:16 AM EST us Lillian Sprague MD LAB BLOOD ORDERABLES Final Resul t [facility] [address] [place] [address], * (ABNORMAL) Complete blood count (09/28/2025 5:31 AM EST) WBC 6.2 4.8 - 10.8 K/mcL LAB HEMETOLOGY METHOD 09/28/2025 11:04 AM [facility] RBC 3.60(L) 3.80 - 4.80 M/mcL LAB HEMETOLOGY METHOD 09/28/2025 11:04 AM [facility] Hemoglobin 11.4(L) 11.5 - 16.0 g/dL LAB HEMETOLOGY METHOD 09/28/2025 11:04 AM [facility] Hematocrit 35.3 35.0 - 47.0 % LAB HEMETOLOGY METHOD 09/28/2025 11:04 AM [facility] MCV 97.0 79.0 - 98.0 FL LAB HEMETOLOGY METHOD 09/28/2025 11:04 AM [facility] MCH 31.3 27.0 - 32.0 pcg LAB HEMETOLOGY METHOD 09/28/2025 11:04 AM [facility] MCHC 32.3 32.0 - 37.0 g/dL LAB HEMETOLOGY METHOD 09/28/2025 11:04 AM [facility] RDW 12.9 11.0 - 15.0 % LAB HEMETOLOGY METHOD 09/28/2025 11:04 AM [facility] Platelets 186 130 - 400 K/mcL LAB HEMETOLOGY METHOD 09/28/2025 11:04 AM [facility] MPV 11.5(H) 7.0 - 11.0 FL LAB HEMETOLOGY METHOD 09/28/2025 11:04 AM [facility] NRBC 0.0 <1.0 % LAB HEMETOLOGY METHOD 09/28/2025 11:04 AM [facility] NRBC Absolute 0.00 <0.10 K/mcL LAB HEMETOLOGY METHOD 09/28/2025 11:04 AM [facility] Blood Venous blood specimen / Unknown Venipuncture / Unknown 09/28/2025 5:31 AM EST 09/28/2025 10:16 AM EST us Lillian Sprague MD LAB BLOOD ORDERABLES Final Resul t [facility] ([facility]) [facility] [address] [place] [address], documented in this encounter Visit Diagnoses Diagnosis Hyperlipidemia, unspecified documented in this encounter Care Teams Spinning Bath Patroller Relationship Specialty Start Date End Date Lillian Sprague MD [address] [place] [address] [address] [place] [address] PCP - General Geriatric Medicine 09/21/25 documented as of this encounter
--- OUTSIDE RECORDS SUMMARY | 2025-10-04 14:54 | XMS_ITS | Clinical Summary ---
Author Organization [address] [facility] Address [address] [place] [address] Phone Care Team Providers Care Sweet Dough Mixer Name Role Phone Lillian Sprague MD Primary Care Provider [phone] Encounters Date Type Department Care Team Description 10/04/2025 Lab Requisition [facility] [address] [place] [phone] Lillian Sprague MD Hyperlipidemia, unspecified 09/26/2025 Lab Requisition [facility] [address] [place] [phone] Lillian Sprague MD Hyperlipidemia, unspecified 09/21/2025 Lab Requisition [facility] [address] [place] [phone] Lillian Sprague MD Vitamin B12 deficiency anemia, unspecified; Vitamin D deficiency, unspecified; Hyperlipidemia, unspecified from Last 3 Months Surgical History Surgery Date Site/Laterality Comments CHOLECYSTECTOMY 1983 PROCEDURE: HISTORICAL CHOLECYSTECTOMY ROTATOR CUFF REPAIR 10/12 PROCEDURE: HISTORICAL ROTATOR CUFF REPAIR; COMMENT: RIGHT COLONOSCOPY 01/20/2002 PROCEDURE: VT COLONOSCOPY STOMA DX INCLUDING COLLJ SPEC SPX; COMMENT: Negative OTHER SURGICAL HISTORY 12/13 PROCEDURE: VT ARTHRP ACETBLR/PROX FEM PROSTC AGRFT/ALGRFT; COMMENT: right TOTAL KNEE ARTHROPLASTY 09/14 PROCEDURE: VT ARTHRP KNE CONDYLE&PLATU MEDIAL&LAT COMPARTMENTS; COMMENT: left BUNIONECTOMY 01/06 PROCEDURE: VT CORRJ HLX VLGS BNCTY SESMDC W/DOUBLE OSTEOTOMY OTHER SURGICAL HISTORY 2009 PROCEDURE: VT ARTHRD ANT INTERBODY MIN DSC CRV BELOW C2; COMMENT: C5-6; and discectomy Dr. Hayes OTHER SURGICAL HISTORY 01/2010 PROCEDURE: DECOMPRESS DISC RF LUMBAR; COMMENT: Dr Hayes ESOPHAGOGASTRODUODENOSCOPY 05/01/2006 PROCEDURE: VT EGD TRANSORAL BIOPSY SINGLE/MULTIPLE; COMMENT: [place]; duodenal bx wnl COLONOSCOPY W/ BIOPSIES 05/01/2006 PROCEDURE: VT COLONOSCOPY W/BIOPSY SINGLE/MULTIPLE; COMMENT: [place]; random colonic bx wnl OTHER SURGICAL HISTORY 1986 PROCEDURE: VT COLECTOMY PARTIAL W/ANASTOMOSIS; COMMENT: sigmoidectomy for diverticulitis Medical History Medical History Date Comments Essential hypertension, benign D X:Essential hypertension, benign Obesity, unspecified DX:Obesity, unspecified Depressive disorder, not els ewhere classified DX:Depressive disorder, not elsewhere classified Unspecified urinary incontinence DX:Unspecified urinary incontinence Allergic rhinitis, cause unspecified 01/11/2006 DX:Allergic rhinitis, cause unspecified Backache, unspecified 01/11/2006 DX:Backach e, unspecified Osteoarthrosis, unspecified whether generalized or localized, unspecified site 01/11/2006 DX:Osteoarthrosis, unspecifi ed whether generalized or localized, unspecified site; COMMENT: NECK-H/O COMP FX, KNEE, BACK-MILD SCOLIOSIS Other and unspecified noninf ectious gastroenteritis and colitis(558.9) 06/15/2006 DX:Other and unspec ified noninfectious gastroenteritis and colitis(558.9) Obstructive sleep apnea (moni lt) (pediatric) 06/15/2006 DX:Obstructive sleep apnea ( adult) (pediatric) Diverticulosis of colon (wit hout mention of hemorrhage) DX:Diverticulosis of colon ( without mention of hemorrhage); COMMENT: found on colonoscopy 06/13 Historical Medical DX 11/19/2009 DX:Hip rep lacement S/P lumbar discectomy 02/01/2010 DX:S/P lum bar discectomy Carpal tunnel syndrome on right [id number] DX:Carpal tunnel syndrome on right Status post hip replacement 11/19/2009 DX:S tatus post hip replacement S/P TKR (total knee replacement) 09/24/2008 DX:S/P TKR (total knee replacement); COMMENT: L TKR Dr. Shah 09/08/08 Renal calculus 09/15/2007 DX:Renal calculu s Obstructive sleep apnea 06/15/2006 DX:Obstr uctive sleep apnea Morbid obesity (CMS/HCC V24, [facility] V28) 12/10/2013 DX:Morbid obesity (HCC); COM MENT: BMI 41.94 on 09/25/13. Hyperlipemia 01/11/2006 DX:Hyperlipemia Functional diarrhea 10/18/2010 DX:Functiona l diarrhea Elevated LFTs 11/05/2012 DX:Elevated LFTs Carpal tunnel syndrome 12/27/2012 DX:Carpal tunnel syndrome; COMMENT: Right carpal tunnel release 09/20/[address] Duff. Allergic rhinitis 01/11/2006 DX:Allergic rh initis Actinic keratosis, hx of DX:Acti munir keratosis, hx of Family History Medical History Relation Name Comments Diabetes Father Heart attack Father 60's Hypertension Father Other cancer Maternal Grandmother ? type Other: alzheimers Mother Diabetes Paternal Grandfather Other cancer Paternal Grandmother stomach Relation Name Status Comments Brother 1 Alive Brother 2 Alive Daughter Alive Father Alive [place] AGE 67, DM, HTN Maternal Grandfather Maternal Grandmother [place] Mother Alive ALZHEIMER'S,TOR TICOLLIS Paternal Grandfather Paternal Grandmother [place] Son Alive Social History Tobacco Use Types Packs/Day Years Used Date Smoking Tobacco: Never Smokeless Tobacco: Never Alcohol Use Standard Drinks/Week Comments No 0 (1 standard drink = 0.6 oz pur e alcohol) Comments Unknown Sex and Gender Information Value Date Recorded Sex Assigned at Not on file Legal Sex Female 10:24 AM EST Gender Identity Not on file Sexual Orientation Not on file Last Filed Vital Signs Vital Sign Reading Time Taken Comments Blood Pressure 155/82 12/06/2021 1:08 PM EST Sit ting R Arm Pulse 55 12/06/2021 1:08 PM EST Temperature - - Respiratory Rate - - Oxygen Saturation - - Inhaled Oxygen Concentration - - Weight 100 kg (221 lb) 12/06/2021 1:08 PM EST Height 160 cm (5' 3 ) 12/06/2021 1:08 PM EST Body Mass Index 39.15 12/06/2021 1:08 PM EST Plan of Treatment Health Maintenance Due Date Last Done Comments Zoster Vaccines (2 of 3) 08/27/2012 07/02/2012 Depression Screening 10/08/2024 RSV Immunization Adult Patients (1 - 1-dose 75+ series) 2025 COVID-19 Vaccine (3 - season) 2025 12/29/2020, 12/01/2020 Influenza Vaccine (#1) 2025 2, 07/12/2021, 06/17/2020, Additional history exists DTaP,Tdap,and Td Vaccines (3 - Td or Tdap) 08/30/2025 08/30/2015, 10/20/2004 Colorectal Cancer Screening: Stool Based Tests (FOBT/FIT) 09/21/2025 Falls Risk Assessment 09/21/2025 Hepatitis C Screening 09/21/2025 Medicare Annual Wellness Visit 09/21/2025 Osteoporosis Screening (Bone Density Screening) 09/21/2025 Social Influencers of Health Screening 09/21/2025 Hypertension/CHF/CAD Annual BMP Blood Test 09/28/2026 09/28/2025, 09/21/2025 Cholesterol Screening (Lipid Panel) 09/21/2030 09/21/2025 Breast Cancer Screening Discontinued 07/07/2019 Pneumococcal Vaccine: 50+ Years Completed 08/15/2019, 08/21/2016, 06/06/2010 HIB Vaccines Aged Out No longer eligi ble based on patient's age to complete this topic HPV Vaccines Aged Out No longer eligi ble based on patient's age to complete this topic Hepatitis A Vaccines Aged Out No long er eligible based on patient's age to complete this topic Hepatitis B Vaccines Aged Out No long er eligible based on patient's age to complete this topic IPV Vaccines Aged Out No longer eligi ble based on patient's age to complete this topic MMR Vaccines Aged Out No longer eligi ble based on patient's age to complete this topic Meningococcal ACWY Vaccine Aged Out N o longer eligible based on patient's age to complete this topic Meningococcal B Vaccine Aged Out No l onger eligible based on patient's age to complete this topic RSV Immunization Patients Under 20 months Aged Out No longer eligible based on patient's age to complete this topic Varicella Vaccines Aged Out No longer eligible based on patient's age to complete this topic Procedures Procedure Name Priority Date/Time Associated Diagnosis Comments BASIC METABOLIC PANEL Routine 09/28/2025 5:31 AM EST Hyperlipidemia, unspecified COMPLETE BLOOD COUNT Routine 09/28/2025 5:31 AM EST Hyperlipidemia, unspecified FOLATE Routine 09/21/2025 5:41 AM EST Vitamin B12 deficiency anemia, unspecified Vitamin D deficiency, unspecified Hyperlipidemia, unspecified VITAMIN B12 Routine 09/21/2025 5:41 AM EST Vitamin B12 deficiency anemia, unspecified Vitamin D deficiency, unspecified Hyperlipidemia, unspecified LIPID PANEL WITH REFLEX TO DIRECT LDL Routine 09/21/2025 5:41 AM EST Vitamin B12 deficiency anemia, unspecified Vitamin D deficiency, unspecified Hyperlipidemia, unspecified COMPREHENSIVE METABOLIC PANEL Routine 09/21/2025 5:41 AM EST Vitamin B12 deficiency anemia, unspecified Vitamin D deficiency, unspecified Hyperlipidemia, unspecified COMPLETE BLOOD COUNT Routine 09/21/2025 5:41 AM EST Vitamin B12 deficiency anemia, unspecified Vitamin D deficiency, unspecified Hyperlipidemia, unspecified RAVINDER SCREENING DIGITAL Routine 07/07/2019 1:11 PM EDT Encounter for screening mammogram for malignant neoplasm of breast from Last 3 Months or Most Recently Relevant to Health Maintenance Results * (ABNORMAL) Complete blood count (09/28/2025 5:31 AM EST) Only the most recent of2 resultswithin the time period is included. WBC 6.2 4.8 - 10.8 K/mcL LAB HEMETOLOGY METHOD 09/28/2025 11:04 AM [facility] RBC 3.60(L) 3.80 - 4.80 M/mcL LAB HEMETOLOGY METHOD 09/28/2025 11:04 AM [facility] Hemoglobin 11.4(L) 11.5 - 16.0 g/dL LAB HEMETOLOGY METHOD 09/28/2025 11:04 AM [facility] Hematocrit 35.3 35.0 - 47.0 % LAB HEMETOLOGY METHOD 09/28/2025 11:04 AM [facility] MCV 97.0 79.0 - 98.0 FL LAB HEMETOLOGY METHOD 09/28/2025 11:04 AM EST [facility] MCH 31.3 27.0 - 32.0 pcg LAB HEMETOLOGY METHOD 09/28/2025 11:04 AM EST [facility] MCHC 32.3 32.0 - 37.0 g/dL LAB HEMETOLOGY METHOD 09/28/2025 11:04 AM EST [facility] RDW 12.9 11.0 - 15.0 % LAB HEMETOLOGY METHOD 09/28/2025 11:04 AM [facility] Platelets 186 130 - 400 K/mcL LAB HEMETOLOGY METHOD 09/28/2025 11:04 AM [facility] MPV 11.5(H) 7.0 - 11.0 FL LAB HEMETOLOGY METHOD 09/28/2025 11:04 AM EST [facility] NRBC 0.0 <1.0 % LAB HEMETOLOGY METHOD 09/28/2025 11:04 AM [facility] NRBC Absolute 0.00 <0.10 K/mcL LAB HEMETOLOGY METHOD 09/28/2025 11:04 AM [facility] Blood Venous blood specimen / Unknown Venipuncture / Unknown 09/28/2025 5:31 AM EST 09/28/2025 10:16 AM EST us Lillian Sprague MD LAB BLOOD ORDERABLES Final Resul t [facility] [address] [place] [address], * Basic metabolic panel (09/28/2025 5:31 AM EST) Sodium 139 133 - 145 mmol/L 09/28/2025 11:43 AM EST [facility] Potassium 4.1 3.5 - 5.5 mmol/L 09/28/2025 11:43 AM [facility] Chloride 104 96 - 110 mmol/L 09/28/2025 11:43 AM [facility] CO2 25 21 - 32 mmol/L 09/28/2025 11:43 AM [facility] Anion Gap 10 3 - 11 09/28/2025 11:43 AM [facility] Glucose 87 70 - 100 mg/dL 09/28/2025 11:43 AM [facility] BUN 17 5 - 25 mg/dL 09/28/2025 11:43 AM [facility] Creatinine 0.84 0.50 - 1.10 mg/dL 09/28/2025 11:43 AM [facility] eGFR 73 >=60 mL/min/1. 73m2 09/28/2025 11:43 AM [facility] Comment:Calculation based on the Chronic Kidney Disease Epidemiology Collaboration (CKD-EPI) equation refit without adjustment for race. BUN/Creatinine Ratio 20.2 09/28/2025 11:43 AM [facility] Calcium 9.0 8.5 - 10.5 mg/dL 09/28/2025 11:43 AM [facility] Blood Venous blood specimen / Unknown Venipuncture / Unknown 09/28/2025 5:31 AM EST 09/28/2025 10:16 AM EST us Lillian Sprague MD LAB BLOOD ORDERABLES Final Resul t [facility] [address] [place] [address], * Lipid panel with reflex to direct LDL (09/21/2025 5:41 AM EST) Cholesterol 106 0 - 200 mg/dL 09/21/2025 12:19 PM [facility] Triglycerides 120 0 - 150 mg/dL 09/21/2025 12:19 PM [facility] HDL 43 >=40 mg/dL 09/21/2025 12:19 PM [facility] LDL Calculated 39 0 - 100 mg/dL 09/21/2025 12:19 PM [facility] Comment:Estimated LDL is taryn culated using the Friedewald equation: Total cholesterol - HDL cholesterol - (Triglycerides/5) VLDL Cholesterol Taryn 24 mg/dL 09/21/2025 12:19 PM [facility] Non HDL Chol. (LDL+VLDL) 63 <145 mg/dL 09/21/2025 12:19 PM [facility] Chol/HDL Ratio 2.5 0.0 - 4.4 09/21/2025 12:19 PM [facility] Blood Venous blood specimen / Unknown Venipuncture / Unknown 09/21/2025 5:41 AM EST 09/21/2025 10:17 AM EST Lillian Spargue MD LAB BLOOD ORDERABLES Final Resul t [facility] [address] [place] [address], * Folate (09/21/2025 5:41 AM EST) Folate 7.2 >=5.4 ng/ml 09/21/2025 12:13 PM EST [facility] Blood Venous blood specimen / Unknown Venipuncture / Unknown 09/21/2025 5:41 AM EST 09/21/2025 10:17 AM EST Narrative [facility] - 09/21/2025 12:13 PM EST Over the counter supplements containing high doses of biotin may interfere with this assay. If interference is suspected, patients shoud be retested after refraining from biotin supplements for 72 hours. us Lillian Sprague MD LAB BLOOD ORDERABLES Final Resul t Performing Organization Address [facility]/ZIP Co de Phone Number [facility] [address] [place] [address], [place] [phone] * Vitamin B12 (09/21/2025 5:41 AM EST) [facility] Vitamin B-12 253 211 - 911 pcg/mL 09/21/2025 12:13 PM [facility] Blood Venous blood specimen / Unknown Venipuncture / Unknown 09/21/2025 5:41 AM EST 09/21/2025 10:17 AM EST us Lillian Sprague MD LAB BLOOD ORDERABLES Final Resul t Performing Organization Address [facility]/ZIP Co de Phone Number [facility] [address] [place] [address], [place] [phone] * Comprehensive metabolic panel (09/21/2025 5:41 AM EST) [facility] Sodium 140 133 - 145 mmol/L 09/21/2025 12:19 PM [facility] Potassium 4.3 3.5 - 5.5 mmol/L 09/21/2025 12:19 PM [facility] Chloride 103 96 - 110 mmol/L 09/21/2025 12:19 PM [facility] CO2 26 21 - 32 mmol/L 09/21/2025 12:19 PM [facility] Anion Gap 11 3 - 11 09/21/2025 12:19 PM [facility] Glucose 86 70 - 100 mg/dL 09/21/2025 12:19 PM [facility] BUN 20 5 - 25 mg/dL 09/21/2025 12:19 PM [facility] Creatinine 0.92 0.50 - 1.10 mg/dL 09/21/2025 12:19 PM [facility] eGFR 65 >=60 mL/min/1. 73m2 09/21/2025 12:19 PM [facility] Comment:Calculation based on the Chronic Kidney Disease Epidemiology Collaboration (CKD-EPI) equation refit without adjustment for race. BUN/Creatinine Ratio 21.7 09/21/2025 12:19 PM [facility] Calcium 10.1 8.5 - 10.5 mg/dL 09/21/2025 12:19 PM [facility] AST (SGOT) 16 10 - 42 unit/L 09/21/2025 12:19 PM [facility] ALT (SGPT) 13 10 - 60 unit/L 09/21/2025 12:19 PM [facility] Alkaline Phosphatase 55 42 - 121 unit/L 09/21/2025 12:19 PM [facility] Total Protein 6.6 6.0 - 8.0 g/dL 09/21/2025 12:19 PM [facility] Albumin 3.5 3.2 - 5.0 g/dL 09/21/2025 12:19 PM [facility] Total Bilirubin 0.6 0.0 - 1.4 mg/dL 09/21/2025 12:19 PM [facility] Blood Venous blood specimen / Unknown Venipuncture / Unknown 09/21/2025 5:41 AM EST 09/21/2025 10:17 AM EST us Lillian Sprague MD LAB BLOOD ORDERABLES Final Resul t [facility] [address] [place] [address], * RAVINDER SCREENING DIGITAL (07/07/2019 1:11 PM EDT) Anatomical Region Laterality Modality Mammography 07/04/2019 12:3 2 PM EDT Narrative 07/07/2019 1:11 PM EDT [facility] Diagnostic Imaging Department [address] [place] [id number] Patient: RACQUEL SOSA /Age/Sex: 1950 - 69 - F Unit#: [id number] Location/Status: SPDIMAM/REG CLI Mnemonic/Ordering Site: [facility] Ordering Physician: ROSE BLOUNT MD Ravinder Screening Digital - 07/04/19 - 1320 INDICATION: SCREENING COMPARISON: Outside mammograms of 09-22, 01/17/2011 and 12/27/2009 TECHNIQUE: CC and MLO views of the breasts were obtained, using full field digital mammography with 3D tomosynthesis views in the MLO projection. Computer aided detection with the Kantox 7.2-H was employed. FINDINGS: The breasts are almost entirely composed of fat. No suspicious masses, suspicious microcalcifications, or areas of architectural distortion are identified. There are no secondary signs of breast malignancy. IMPRESSION: No specific mammographic evidence of breast malignancy. Lack of an imaging correlate should not deter or delay biopsy of a clinically significant palpable finding. BI-RADS - Category 1: Negative 3341F, 7025F Annual screening mammography is recommended. Patient entered into a reminder system with a target date for the next mammogram. ([id number] / [id number]) , [id number] Dictating Physician: GODFREY BUSTILLO MD Electronically Signed by: GODFREY BUSTILLO MD Dic Date/Time: 07/07/19 1307 Sign date/Time: 07/07/19 1311 Procedure Note Godfrey Bustillo - 09/27/2022 [facility] Diagnostic Imaging Department [address] [place] [id number] Patient: RACQUEL SOSA /Age/Sex: 1950 - 69 - F Unit#: [id number] [facility]Ordering Site: [facility] Ordering Physician: ROSE BLOUNT MD Ravinder Screening Digital - 07/04/19 - 1320 INDICATION: SCREENING COMPARISON: Outside mammograms of 12-16, 01/17/2011 and 12/27/2009 TECHNIQUE: CC and MLO views of the breasts were obtained, using full field digital mammography with 3D tomosynthesis views in the MLO projection. Computer aided detection with the Kantox 7.2-H was employed. FINDINGS: The breasts are almost entirely composed of fat. No suspicious masses, suspicious microcalcifications, or areas ofarchitectural distortion are identified. There are no secondary signs of breastmalignancy. IMPRESSION: No specific mammographic evidence of breast malignancy. Lack of an imaging correlate should not deter or delay biopsy of aclinically significant palpable finding. BI-RADS - Category 1: Negative 3341F, 7025F Annual screening mammography is recommended. Patient entered into a reminder system with a target date for the next mammogram. ([id number] / [id number]) , [id number] Dictating Physician: GODFREY BUSTILLO MD Electronically Signed by: GODFREY BUSTILLO MD Dic Date/Time: 07/07/19 1307 Sign date/Time: 07/07/19 1311 Rose Blount MD IMG BI PROCEDURES Final Result from Last 3 Months or Most Recently Relevant to Health Maintenance Insurance MEDICARE [place]ICAID - [place] Care Teams Sweet Dough Mixer Relationship Specialty Start Date End Date Lillian Sprague MD [address] [facility] [address] [place] [address] PCP - General Geriatric Medicine 09/21/25
[2025-10-04 14:59] LABS: Hematocrit 35.8 % (37.0-47.0); Hemoglobin 11.6 g/dl (12.0-16.0); Imm Gran Abs Auto 0.01 X10*3/uL (0.00-0.03); Imm Gran Pct Auto 0.1 % (0.0-0.4); Lymphocytes Absolute Auto 2.7 X10*3/uL (1.2-4.9); Mean Corpuscular HGB Conc 32.4 g/dl (31.0-35.0); Mean Corpuscular Hemoglobin 31.0 pg (27.0-33.0); Mean Corpuscular Volume 95.7 fL (80.0-98.0); NRBC Abs Auto 0.000 X10*3/uL (0.0-0.012); NRBC Pct Auto 0.0 /100WBC (0.0-0.2); Platelet Count 182 X10*3/uL (160-400); Red Blood Count 3.74 X10*6/uL (4.20-5.50); White Blood Count 7.3 X10*3/uL (4.8-10.8)
--- NOTE | 2025-10-04 15:00 | PHA.MEDREC ---
Pharmacy Consult ? Medication Reconciliation Pharmacy has completed the medication reconciliation. Utilized list from [facility]
[2025-10-04 15:10] LABS: Alanine Aminotransferase 12 U/L (0-31); Albumin Level 3.7 g/dL (3.5-5.0); Alkaline Phosphatase 60 U/L (39-117); Anion Gap 12 (12-20); Aspartate Amino Transferase 23 U/L (5-31); Blood Urea Nitrogen 16 mg/dL (9-16); Calcium 9.8 mg/dL (8.4-10.2); Carbon Dioxide 25 mmol/L (22-29); Chloride 105 mmol/L (96-108); Creatinine Clr Calc Pharmacy 62.2; Estimated Glomerular Filt Rate > 60; Magnesium 2.3 mg/dL (1.6-2.6); Potassium 4.3 mmol/L (3.3-5.1); Sodium 138 mmol/L (135-145); Total Protein 6.9 g/dL (6.5-8.0)
[2025-10-04 15:17] LABS: Troponin-I High Sensitivity 19.9 ng/L (<3.5-17.0)
[2025-10-04 15:26] LABS: NT Pro B Type Natriuretic Pept 180.9 pg/mL (<300)
[2025-10-04 15:29] LABS: Resp Syncy Virus RNA Qual PCR NEGATIVE (Negative); SARS COV2 PCR INHOUSE NEGATIVE (Negative)
[2025-10-04] MEDS: iohexoL 350 MG/ML 100 ML INFUS..BTL IV (15:36)
[2025-10-04 16:48] LABS: Troponin-I High Sensitivity 19.0 ng/L (<3.5-17.0)
[2025-10-04 17:32] VITALS: PULSE 75; RESP 18; TEMP 37.1; O2SAT 96
[2025-10-04 17:35] VITALS: BP 151/104; PULSE 81
[2025-10-04 17:53] LABS: Appearance Urine Clear; Glucose Urine UA Negative (Negative); PH 7.5 (5.0-9.0); Specific Gravity - Urine 1.020 (1.005-1.025)
--- NOTE | 2025-10-04 17:57 | PC.NURSE ---
attempted to call report to [facility], no answer at this time
[2025-10-04 18:00] VITALS: BP 140/57; RESP 18
--- NOTE | 2025-10-04 18:15 | PC.NURSE ---
2nd attempt made to call report to [facility], phone rings until it hangs up
[2025-10-04 18:24] VITALS: BP 140/57; PULSE 87; RESP 18; TEMP 36.8; O2SAT 97
== END 2025-10-04 18:25 | disposition other institution (70) ==
PROVIDERS: Physician Assistant; Physician Assistant Medical; Emergency Provider Emergency Medicine
DX: R42 Dizziness and giddiness (principal); I65.21 Occlusion and stenosis of right carotid artery; J18.9 Pneumonia, unspecified organism; Z79.899 Other long term (current) drug therapy; Z03.818 Encounter for observation for suspected exposure to other biological agents ruled out
CPT/HCPCS: 36415; 70450; 70496; 70498; 71046; 73522; 80053; 81003; 83605; 83735; 83880; 84484; 85025; 87040; 87637; 93005; 96374; 99284; J2270; Q9967

== ENCOUNTER → 2025-10-04 13:57 | Outpatient (BNV) | payer MEDICARE, MEDICAID, SELFPAY | PROVIDERS: Emergency Provider Emergency Medicine; Visit Provider Internal Medicine | DX: I44.0 Atrioventricular block, first degree (principal) | CPT/HCPCS: 93010 ==

== ENCOUNTER → 2025-10-04 14:06 | Outpatient (BNV) | payer MEDICARE, MEDICAID, SELFPAY | PROVIDERS: Emergency Provider Emergency Medicine; Visit Provider Radiology Diagnostic Radiology | DX: I65.23 Occlusion and stenosis of bilateral carotid arteries (principal); R42 Dizziness and giddiness; M25.551 Pain in right hip; R91.8 Other nonspecific abnormal finding of lung field | CPT/HCPCS: 70450; 70496; 70498; 71046; 73522 ==